=== PATIENT | female | born 1940 | race Caucasian/White ===

== ENCOUNTER → 2016-06-27 | Outpatient (CLI) | payer MEDICARE, BC | END | disposition home or self-care (01) | LOC: PCVCCLINIC 11:43 | PROVIDERS: ATTEND Internal Medicine | DX: I49.3 Ventricular premature depolarization (principal); I65.29 Occlusion and stenosis of unspecified carotid artery; I10 Essential (primary) hypertension; E78.5 Hyperlipidemia, unspecified | CPT/HCPCS: 80061; 93005; G0463 ==

== ENCOUNTER → 2016-12-20 | Outpatient (CLI) | payer MEDICARE, BC ==
--- NOTE | 2016-12-20 10:16 | PCVCIMAG ---
APPROVED REPORT Study performed: 12/20/2016 08:05:09 EXAM: Comprehensive 2D, Doppler, and color-flow Echocardiogram Status: routine BSA: 1.85 HR: 70 bpmBP: 132/82 mmHg Rhythm: NSR Other Information Study Quality: Good Indications Dyspnea. Palpitations. 2D Dimensions IVSd: 10.02 (7-11mm)LVOT Diam: 16.90 (18-24mm) LVDd: 35.55 mm LVPWs: 24.69 mm PWd: 10.62 (7-11mm)Ascending Ao: 29.36 (22-36mm) LVDs: 28.63 (25-40mm) Left Atrium: 30.61 (27-40mm) Aortic Root: 22.05 mm LV Single Plane 4CH: 53.16 % Volumes Left Atrial Volume (Systole) Single Plane 4CH: 20.07 mLSingle Plane 2CH: 19.77 mL LA ESV Index: 12.00 mL/m2 Aortic Valve AoV Peak Dev.: 1.13 m/s AO Peak Gr.: 5.15 mmHg Mitral Valve E/A Ratio: 0.8 MV Decel. Time: 189.46 ms MV E Max Dev.: 0.60 m/s MV A Dev.: 0.71 m/s IVRT: 131.49 ms TDI E/Lateral E': 8.57E/Medial E': 15.00 Medial E' Dev.: 0.04 m/s Lateral E' Dev.: 0.07 m/s Pulmonary Valve PV Peak Gr.: 2.46 mmHg Pulmonary Vein P Vein S: 0.71 m/sP Vein A: 0.37 m/s P Vein D: 0.54 m/sP Vein A Dur.: 86.5 msec P Vein S/D Ratio: 1.31 Tricuspid Valve TR Peak Dev.: 2.27 m/s TR Peak Gr.: 20.63 mmHg Left Ventricle The left ventricle is normal size. There is normal LV segmental wall motion. There is normal left ventricular wall thickness. Left ventricular systolic function is normal. The left ventricular ejection fraction is within the normal range. LVEF is 60%. Grade I diastolic dysfunction Right Ventricle The right ventricle is normal size. The right ventricular systolic function is normal. Atria The left atrium size is normal. The right atrium size is normal. Aortic Valve The aortic valve is normal in structure. No aortic regurgitation is present. There is no aortic valvular stenosis. Mitral Valve The mitral valve is normal in structure. Mild mitral regurgitation. No evidence of mitral valve stenosis. Tricuspid Valve The tricuspid valve is normal in structure. Mild tricuspid regurgitation. Pulmonary artery pressure is 28mmhg. Pulmonic Valve The pulmonary valve is normal in structure. There is no pulmonic valvular regurgitation. Great Vessels The aortic root is normal in size. IVC is normal in size and collapses with >50% inspiration Pericardium There is no pericardial effusion. <Conclusion> Left ventricular systolic function is normal. There is normal LV segmental wall motion. LVEF is 60%. Grade I diastolic dysfunction The aortic valve is normal in structure. No aortic regurgitation or stenosis. The mitral valve is normal in structure. Mild mitral regurgitation. Pulmonary artery pressure of 28mmHg There is no pericardial effusion.
--- NOTE | 2016-12-21 18:04 | PCVCIMAG ---
APPROVED REPORT Exam: Nuclear Stress Test Indication: Dyspnea, Increasing Fatigue Patient Location: Out-Patient Stress Nurse: Macrina Tovar RN, FRANTZ Monroy Tech:Cece Acostakaro [facility] Ht: 5 ft 9 in Wt: 158 lbs BSA: 1.87 m2 HR: 74 bpm BP: 140/74 mmHg BMI: 23.3 Rhythm: NSR Medical History Medical History: Hyperlipidemia, Former Smoker Medications: ASA, Atenolol (held 24 hours) Wellbutrin Allergies: Statins, Vancomycin Cardiac Risk Factors: Age Pretest Chest Pain Characteristics: No chest pain Physical Disabilities: Legs NM EXAM: Myocardial Perfusion REST/STRESS Imaging Protocol: Rest Tc-99m/Stress Tc-99m 1 day Resting Data Rest SPECT myocardial perfusion imaging was performed in supine position 45 minutes following the intravenous injection of 8.5 mCi of Tc-99m Sestamibi. Time of rest injection: 0900 Date: 12/20/2016 Administration Route: IV Administration Site: Left Arm Pharmacologic Stress Pharmacologic stress test was performed by injecting Regadenoson 0.4 mg IV push followed by the intravenous injection of 26.8 mCi of Tc-99m Sestamibi. Time of stress injection: 1015 Date: 12/20/2016 Administration Route: IV Administration Site: Left Arm Gated Stress SPECT was performed 45 minutes after stress injection. The images were gated to evaluate regional wall motion and calculate left ventricular ejection fraction. Study Data Post stress, the left ventricular ejection was 69%.. SSS: 0 SRS: 0 SDS: 0 Perfusion No evidence of stress induced ischemia or prior myocardial infarction. Wall Motion Normal left ventricular size and function with no regional wall motion abnormalities. Nuclear Conclusion No evidence of stress induced ischemia or prior myocardial infarction. Normal left ventricular size and function with no regional wall motion abnormalities. Minimal post-stress left ventricular dilatation is a nonspecific finding. Please correlate clinically. Post stress, the left ventricular ejection was 69%.. No prior study available for comparison. Interpreted by: Anmol Sierra MD Electronically Approved: 12/21/2016 14:29:42 Stress Test Details Stress Test: Pharmacologic stress was paired with low level exercise. Reason for pharmacologic stress test: physical limitation. HR Resting HR: 74 bpmMax Heart Rate (APMHR): 146 bpm Max HR Achieved: 107 bpmTarget HR (85% APMHR): 124 bpm % of APMHR: 73 Recovery HR: 82 bpm BP Resting BP: 140/74 mmHg Max BP: 124/68 mmHg ECG Resting ECG: Sinus Rhythm Stress ECG: Sinus Rhythm ST Change: None Maximum ST Deviation: 0 mm Arrhythmia: None Recovery ECG: Sinus Rhythm Recovery ST Change: Normal Recovery ST Deviation: 0 mm Clinical Reason for Termination: Completed protocol Stress Symptoms: Dyspnea Exercise duration: 4 min 00 sec Exercise capacity: 1.6 METs Symptoms resolved during recovery.Symptoms resolved during recovery. Stress ECG Conclusion Clinical: Non-ischemic ECG: Non-ischemic <Conclusion> Clinical: Non-ischemic ECG: Non-ischemic
== END | disposition home or self-care (01) ==
LOC: PCVCIMAG 07:53
PROVIDERS: ATTEND Internal Medicine
DX: I08.1 Rheumatic disorders of both mitral and tricuspid valves (principal); E78.5 Hyperlipidemia, unspecified; I10 Essential (primary) hypertension; Z87.891 Personal history of nicotine dependence
CPT/HCPCS: 78452; 93017; 93306; A9500

== ENCOUNTER → 2017-01-10 | Outpatient (CLI) | payer MEDICARE, BC ==
--- NOTE | 2017-01-10 15:41 | PCVCIMAG ---
APPROVED REPORT Indications Stenosis Risk Factors Hypertension: Hyperlipidemia Doppler Spectral Velocity Analysis PSV / EDVPSV / EDV ECA (R) 166 / 50 cm/sECA (L) 81 / 14 cm/s dICA (R) 71 / 30 cm/sdICA (L) 103 / 34 cm/s Isaac (R) 125 / 34 cm/smICA (L) 97 / 35 cm/s pICA (R) 145 / 41 cm/spICA (L) 70 / 24 cm/s Bulb (R) 87 / 26 cm/sBulb (L) 56 / 15 cm/s dCCA (R) 86 / 26 cm/sdCCA (L) 78 / 26 cm/s mCCA (R) 81 / 17 cm/smCCA (L) 97 / 22 cm/s Vert (R) 52 / 18 cm/sVert (L) 52 / 17 cm/s ICA/CCA 1.88ICA/CCA 1.07 Basic Measurements Blood Pressure: Pulses: Right Left RightLeft Brachial(Sitting) 122/80mmHgTemporal Real Time B-Mode Imaging Vert. (R)AntegradeVert. (L)Antegrade Findings The right carotid bulb has moderate calcified plaque. The right proximal internal carotid artery shows 60-70% stenosis. The right common carotid artery shows no significant stenosis. The left carotid bulb has moderate heterogeneous plaque. The left proximal internal carotid artery shows <40% stenosis. The left common carotid artery shows no significant stenosis. The left external carotid artery shows no significant stenosis. Conclusion 1. Right internal carotid artery stenosis (60-70%) 2. Left internal carotid artery stenosis (<40%) 3. Antegrade vertebral flow Simialr to a study dated November 2015
== END | disposition home or self-care (01) ==
LOC: PCVCIMAG 12:50
PROVIDERS: ATTEND Internal Medicine
DX: I65.23 Occlusion and stenosis of bilateral carotid arteries (principal); I49.3 Ventricular premature depolarization; I10 Essential (primary) hypertension; E78.5 Hyperlipidemia, unspecified; Z87.891 Personal history of nicotine dependence; Z85.3 Personal history of malignant neoplasm of breast; Z79.82 Long term (current) use of aspirin; Z90.710 Acquired absence of both cervix and uterus; Z96.651 Presence of right artificial knee joint; Z88.8 Allergy status to other drugs, medicaments and biological substances
CPT/HCPCS: 93880; G0463

== ENCOUNTER → 2017-07-17 | Outpatient (CLI) | payer MEDICARE, BC | END | disposition home or self-care (01) | LOC: PCVCCLINIC 14:40 | DX: I10 Essential (primary) hypertension (principal); I49.3 Ventricular premature depolarization; I65.23 Occlusion and stenosis of bilateral carotid arteries; Z87.891 Personal history of nicotine dependence; Z79.899 Other long term (current) drug therapy; Z79.82 Long term (current) use of aspirin | CPT/HCPCS: 93005; G0463 ==

== ENCOUNTER → 2018-01-16 | Outpatient (CLI) | payer MEDICARE, BC ==
--- NOTE | 2018-01-16 13:23 | PCVCIMAG ---
APPROVED REPORT Indications Stenosis Risk Factors Hypertension: Hyperlipidemia Doppler Spectral Velocity Analysis PSV / EDVPSV / EDV ECA (R) 159 / 13 cm/sECA (L) 86 / 16 cm/s dICA (R) 63 / 27 cm/sdICA (L) 74 / 21 cm/s Isaac (R) 141 / 35 cm/smICA (L) 87 / 23 cm/s pICA (R) 157 / 46 cm/spICA (L) 65 / 16 cm/s Bulb (R) 69 / 16 cm/sBulb (L) 62 / 14 cm/s dCCA (R) 69 / 18 cm/sdCCA (L) 85 / 25 cm/s mCCA (R) 81 / 17 cm/smCCA (L) 99 / 25 cm/s Vert (R) 46 / 14 cm/sVert (L) 62 / 18 cm/s ICA/CCA 1.94ICA/CCA 0.87 Basic Measurements Blood Pressure: Pulses: Right Left RightLeft Brachial(Sitting) 124/80mmHgTemporal Real Time B-Mode Imaging Vert. (R)AntegradeVert. (L)Antegrade Findings The right carotid bulb has moderate calcified plaque. The right proximal internal carotid artery shows 60-70% stenosis. The right common carotid artery shows no significant stenosis. The right external carotid artery shows >50% stenosis. The left carotid bulb has moderate plaque. The left proximal internal carotid artery shows <40% stenosis. The left common carotid artery shows no significant stenosis. The left external carotid artery shows no significant stenosis. Conclusion 1. Right internal carotid artery stenosis (60-70%) 2. Left internal carotid artery stenosis (<40%) 3. Antegrade vertebral flow
== END | disposition home or self-care (01) ==
LOC: PCVCIMAG 13:02
PROVIDERS: ATTEND Internal Medicine
DX: I65.23 Occlusion and stenosis of bilateral carotid arteries (principal); I10 Essential (primary) hypertension; E78.5 Hyperlipidemia, unspecified; I49.3 Ventricular premature depolarization; R00.2 Palpitations; Z87.891 Personal history of nicotine dependence; Z79.82 Long term (current) use of aspirin
CPT/HCPCS: 80061; 93005; 93880; G0463

== ENCOUNTER → 2019-02-25 | Outpatient (CLI) | payer MEDICARE, BC ==
--- NOTE | 2019-02-25 14:44 | PCVCIMAG ---
APPROVED REPORT Indications Stenosis Risk Factors Hypertension: Hyperlipidemia Doppler Spectral Velocity Analysis PSV / EDVPSV / EDV ECA (R) 154 / 31 cm/sECA (L) 63 / 10 cm/s dICA (R) 46 / 19 cm/sdICA (L) 92 / 31 cm/s Isaac (R) 110 / 28 cm/smICA (L) 97 / 34 cm/s pICA (R) 162 / 43 cm/spICA (L) 86 / 23 cm/s Bulb (R) 67 / 20 cm/sBulb (L) 72 / 21 cm/s dCCA (R) 62 / 17 cm/sdCCA (L) 92 / 26 cm/s mCCA (R) 62 / 16 cm/smCCA (L) 90 / 22 cm/s Vert (R) 68 / 16 cm/sVert (L) 48 / 14 cm/s ICA/CCA 2.61ICA/CCA 1.05 Basic Measurements Blood Pressure: Pulses: Right Left RightLeft Brachial(Sitting) 143/89mmHgTemporal Real Time B-Mode Imaging Vert. (R)AntegradeVert. (L)Antegrade Findings The right carotid bulb has moderate calcified plaque. The right proximal internal carotid artery shows 60-70% stenosis. The right common carotid artery shows no significant stenosis. The right external carotid artery shows no significant stenosis. The left carotid bulb has moderate calcified plaque. The left proximal internal carotid artery shows <40% stenosis. The left common carotid artery shows no significant stenosis. The left external carotid artery shows no significant stenosis. Conclusion 1. Right internal carotid artery stenosis (60-70%). 2. Left internal carotid artery stenosis (<40%). 3. Antegrade vertebral flow.
--- NOTE | 2019-02-25 14:51 | PCVCIMAG ---
APPROVED REPORT Study performed: 02/25/2019 13:46:42 EXAM: Comprehensive 2D, Doppler, and color-flow Echocardiogram Patient Location: Echo lab Status: routine BSA: 1.85 HR: 72 bpmBP: 143/89 mmHg Rhythm: NSR Other Information Study Quality: Adequate Risk Factors: Cardiac Risk Factors: HTN, Hyperlipidemia Indications PVCs 2D Dimensions IVSd: 10.13 (7-11mm) LVDd: 40.13 mm PWd: 8.61 (7-11mm)Ascending Ao: 32.47 (22-36mm) LVDs: 26.22 (25-40mm) Left Atrium: 36.77 (27-40mm) Aortic Root: 32.51 mm LV Single Plane 4CH: 56.76 % LV Single Plane 2CH: 54.70 % Biplane EF: 56.6 % Volumes Left Atrial Volume (Systole) Single Plane 4CH: 58.44 mLSingle Plane 2CH: 58.53 mL LA ESV Index: 32.00 mL/m2 Aortic Valve AoV Peak Dev.: 1.24 m/s AO Peak Gr.: 6.14 mmHgLVOT Max P.87 mmHg LVOT Max V: 1.10 m/s Mitral Valve E/A Ratio: 1.3 MV Decel. Time: 258.09 ms MV E Max Dev.: 0.56 m/s MV A Dev.: 0.44 m/s IVRT: 110.73 ms Pulmonary Valve PV Peak Dev.: 0.97 m/sPV Peak Gr.: 3.78 mmHg Pulmonary Vein P Vein S: 0.37 m/sP Vein A: 0.33 m/s P Vein D: 0.52 m/sP Vein A Dur.: 110.7 msec P Vein S/D Ratio: 0.71 Tricuspid Valve TR Peak Dev.: 2.68 m/s TR Peak Gr.: 28.65 mmHg Left Ventricle The left ventricle is normal size. There is normal LV segmental wall motion. There is normal left ventricular wall thickness. Left ventricular systolic function is normal. The left ventricular ejection fraction is within the normal range. LVEF is 55-60%. Moderate diastolic dysfunction is present (pseudonormal filling). Right Ventricle The right ventricle is normal size. The right ventricular systolic function is normal. Atria The left atrium size is normal. The right atrium size is normal. Aortic Valve The aortic valve is normal in structure. Trace aortic regurgitation. There is no aortic valvular stenosis. Mitral Valve The mitral valve is normal in structure. Mild mitral regurgitation. No evidence of mitral valve stenosis. Tricuspid Valve The tricuspid valve is normal in structure. Mild tricuspid regurgitation with PAP of 36 mmHg. Pulmonic Valve The pulmonary valve is normal in structure. Trace pulmonic regurgitation. Great Vessels The aortic root is normal in size. IVC is normal in size and collapses >50% with inspiration. Pericardium There is no pericardial effusion. There is no pleural effusion. <Conclusion> Left ventricular systolic function is normal. There is normal LV segmental wall motion. LVEF is 55-60%. Moderate diastolic dysfunction The aortic valve is normal in structure. Trace aortic regurgitation, no stenosis The mitral valve is normal in structure. Mild mitral regurgitation. Mild tricuspid regurgitation with pulmonary artery pressure of 36 mmHg. There is no pericardial effusion.
== END | disposition home or self-care (01) ==
LOC: PCVCIMAG 13:15
PROVIDERS: ATTEND Internal Medicine
DX: I08.1 Rheumatic disorders of both mitral and tricuspid valves (principal); I65.23 Occlusion and stenosis of bilateral carotid arteries; I49.3 Ventricular premature depolarization; I10 Essential (primary) hypertension; E78.5 Hyperlipidemia, unspecified; R55 Syncope and collapse; R06.00 Dyspnea, unspecified; R53.83 Other fatigue; R00.2 Palpitations; E78.49 Other hyperlipidemia; Z88.8 Allergy status to other drugs, medicaments and biological substances; Z79.82 Long term (current) use of aspirin; Z79.899 Other long term (current) drug therapy; Z87.891 Personal history of nicotine dependence; Z90.710 Acquired absence of both cervix and uterus
CPT/HCPCS: 93306; 93880